=== PATIENT | male | born 1955 | race Hispanic/Latino ===

== ENCOUNTER 2017-02-25 01:18 | Emergency (ER) | payer MEDICARE ==
[2017-02-25 02:24] LABS: Bilirubin,Urine NEG (Negative); Blood,Urine NEG (Negative); Ketones,Urine 20 mg/dL (Negative); Leukocyte Esterase,Urine NEG (Negative); Nitrite,Urine NEG (Negative); Urobilinogen,Urine < 2.0 mg/dL (<2.0)
[2017-02-25 02:29] LABS: Protein,Urine >500 mg/dL (Negative)
[2017-02-25 03:02] LABS: Basophils % (Auto) 0.3 % (0.0-1.8); Hematocrit 47.4 % (35.5-45.6); Hemoglobin 15.7 gm/dl (11.8-15.2); Mean Corpuscular HGB Conc 33 % (32-34); Mean Corpuscular Hemoglobin 31 pg (28-32); Mean Corpuscular Volume 94 fl (84-94); Platelet Count 233 K/mm3 (140-440); Red Blood Count 5.06 M/mm3 (3.65-5.03); White Blood Count 14.9 K/mm3 (4.5-11.0)
[2017-02-25 03:11] LABS: Alanine Aminotransferase 7 units/L (7-56); Albumin 4.6 g/dL (3.9-5); Albumin/Globulin Ratio 1.4 %; Alkaline Phosphatase 96 units/L (35-129); Anion Gap 18 mmol/L; BUN/Creatinine Ratio 14.28; Blood Urea Nitrogen 10 mg/dL (9-20); Calcium 9.3 mg/dL (8.4-10.2); Carbon Dioxide 29 mmol/L (22-30); Chloride 95.1 mmol/L (98-107); Glucose 345 mg/dL (75-100); Lipase 17 units/L (13-60); Potassium 4.7 mmol/L (3.6-5.0); Sodium 137 mmol/L (137-145)
--- NOTE | 2017-02-25 06:26 | Emergency Department Report ---
ED General Adult HPI - General Chief complaint: Abdominal Pain Stated complaint: VOMITING, COUGH Time Seen by Provider: 02/25/17 06:23 Source: patient Mode of arrival: Ambulatory Limitations: No Limitations - History of Present Illness Initial comments: The patient has a history of schizophrenia and is poorly able to give his medical history. I see presume he has some degree of dementia as he is on Aricept as well. He is here with an attendant who knows he is diabetic. The patient denies being diabetic. He complains of cough occasionally with a brown sputum. He said no recent fever or chills. Does not complain of chest pain. He has some vague abdominal discomfort does not complain of this now. He denies any nausea vomiting or diarrhea. Denies any previous abdominal problems or surgery. He appears to be quite comfortable and actually asymptomatic at time of my encounter. -: hour(s) Location: abdomen Radiation: non-radiation Severity scale (0 -10): 3 Quality: other (cramping) Consistency: intermittent, now resolved Improves with: none Worsens with: none Associated Symptoms: denies other symptoms Treatments Prior to Arrival: none - Related Data Home Medications Medication Instructions Recorded Confirmed Last Taken Divalproex Dr [Garrett COHN] 1,000 mg PO QHS 05/02/16 07/23/16 05/01/16 21:00 Multivitamin Tab [Multiple Vitamin 1 each PO QDAY 05/02/16 07/23/16 05/02/16 08: 00 TAB (Theragran)] Olanzapine [ZyPREXA] 20 mg PO QHS 05/02/16 07/23/16 05/01/16 21:00 Thiamine [Vitamin B-1] 100 mg PO QDAY 05/02/16 07/23/16 05/02/16 08:00 traZODone [Desyrel] 100 mg PO QHS 05/02/16 07/23/16 05/01/16 21:00 Aspirin [Aspirin BABY CHEW TAB] 81 mg PO QDAY 07/06/16 07/23/16 Unknown Donepezil [Aricept] 5 mg PO QDAY 07/06/16 07/23/16 Unknown metFORMIN [Glucophage] 500 mg PO BID 07/06/16 07/23/16 Unknown Previous Rx's Medication Instructions Recorded Last Taken Type Clindamycin [Clindamycin CAP] 300 mg PO Q8H #15 cap 07/25/16 Unknown Rx Azithromycin [Zithromax Z-MADIHA] 250 mg PO DAILY #6 tab 02/25/17 Unknown Rx Metformin HCl [Glucophage] 1,000 mg PO BID #60 tablet 02/25/17 Unknown Rx Allergies Allergy/AdvReac Type Severity Reaction Status Date / Time No Known Allergies Allergy Verified 07/06/16 09:29 ED Review of Systems ROS: Stated complaint: VOMITING, COUGH Other details as noted in HPI Constitutional: denies: chills, fever Eyes: denies: eye pain, eye discharge, vision change ENT: denies: ear pain, throat pain Respiratory: denies: cough, shortness of breath, wheezing Cardiovascular: denies: chest pain, palpitations Endocrine: no symptoms reported Gastrointestinal: abdominal pain (lower abdominal), diarrhea (apparently did tell triage she had some diarrhea 2 days ago). denies: nausea Genitourinary: denies: urgency, dysuria Musculoskeletal: denies: back pain, joint swelling, arthralgia Skin: denies: rash, lesions Neurological: denies: headache, weakness, paresthesias Psychiatric: denies: anxiety, depression Hematological/Lymphatic: denies: easy bleeding, easy bruising ED Past Medical Hx - Past Medical History Previous Medical History?: Yes Hx Hypertension: Yes Hx Congestive Heart Failure: Yes Hx Diabetes: Yes Hx Psychiatric Treatment: Yes (SCHIZOPHRENIA; BEHAVIORAL PROBLEMS) - Surgical History Past Surgical History?: No - Social History Smoking Status: Current Every Day Smoker Substance Use Type: Marijuana - Medications Home Medications: Home Medications Medication Instructions Recorded Confirmed Last Taken Type Divalproex [Garrett COHN] 1,000 mg PO QHS 05/02/16 07/23/16 05/01/16 21:00 History Multivitamin Tab [Multiple Vitamin 1 each PO QDAY 05/02/16 07/23/16 05/02/16 08: 00 History TAB (Theragran)] Olanzapine [ZyPREXA] 20 mg PO QHS 05/02/16 07/23/16 05/01/16 21:00 History Thiamine [Vitamin B-1] 100 mg PO QDAY 05/02/16 07/23/16 05/02/16 08:00 History traZODone [Desyrel] 100 mg PO QHS 05/02/16 07/23/16 05/01/16 21:00 History Aspirin [Aspirin BABY CHEW TAB] 81 mg PO QDAY 07/06/16 07/23/16 Unknown History Donepezil [Aricept] 5 mg PO QDAY 07/06/16 07/23/16 Unknown History metFORMIN [Glucophage] 500 mg PO BID 07/06/16 07/23/16 Unknown History Clindamycin [Clindamycin CAP] 300 mg PO Q8H #15 cap 07/25/16 Unknown Rx Azithromycin [Zithromax Z-MADIHA] 250 mg PO DAILY #6 tab 02/25/17 Unknown Rx Metformin HCl [Glucophage] 1,000 mg PO BID #60 tablet 02/25/17 Unknown Rx ED Physical Exam - General Limitations: No Limitations General appearance: alert, in no apparent distress - Head Head exam: Present: atraumatic, normocephalic - Eye Eye exam: Present: normal appearance. Absent: scleral icterus - ENT ENT exam: Present: mucous membranes moist - Neck Neck exam: Present: normal inspection - Respiratory Respiratory exam: Present: normal lung sounds bilaterally. Absent: respiratory distress - Cardiovascular Cardiovascular Exam: Present: regular rate, normal rhythm. Absent: systolic murmur, diastolic murmur, rubs, gallop - GI/Abdominal GI/Abdominal exam: Present: soft, normal bowel sounds, other (a completely benign and negative abdominal exam). Absent: distended, tenderness, guarding, rebound, rigid, organomegaly, mass, bruit, pulsatile mass, hernia - Rectal Rectal exam: Present: deferred - Extremities Exam Extremities exam: Present: normal inspection, normal capillary refill. Absent: tenderness, pedal edema, joint swelling, calf tenderness - Back Exam Back exam: Present: normal inspection - Neurological Exam Neurological exam: Present: alert, oriented X3, CN II-XII intact. Absent: motor sensory deficit - Psychiatric Psychiatric exam: Present: normal affect, normal mood - Skin Skin exam: Present: warm, dry, intact, normal color. Absent: rash ED Course Vital Signs 02/25/17 02/25/17 02/25/17 01:20 04:30 04:40 Temperature 98.4 F Pulse Rate 73 113 H 107 H Respiratory 20 13 25 H Rate Blood Pressure 102/66 Blood Pressure 124/69 [Right] O2 Sat by Pulse 96 97 97 Oximetry 02/25/17 02/25/17 02/25/17 04:50 05:00 05:10 Temperature Pulse Rate 105 H 100 H 105 H Respiratory 19 22 16 Rate Blood Pressure 102/66 102/56 102/56 Blood Pressure [Right] O2 Sat by Pulse 96 94 96 Oximetry 02/25/17 02/25/17 02/25/17 05:20 05:30 05:40 Temperature Pulse Rate 111 H 102 H 108 H Respiratory 19 20 22 Rate Blood Pressure 102/56 114/76 114/76 Blood Pressure [Right] O2 Sat by Pulse 97 96 96 Oximetry 02/25/17 02/25/17 02/25/17 05:50 06:00 06:10 Temperature Pulse Rate 108 H Respiratory 18 Rate Blood Pressure 114/76 97/72 97/72 Blood Pressure [Right] O2 Sat by Pulse 96 97 94 Oximetry 02/25/17 02/25/17 02/25/17 06:20 06:30 06:40 Temperature Pulse Rate Respiratory Rate Blood Pressure 97/72 97/72 119/74 Blood Pressure [Right] O2 Sat by Pulse 95 96 97 Oximetry 02/25/17 02/25/17 02/25/17 06:50 07:00 07:10 Temperature Pulse Rate Respiratory Rate Blood Pressure 119/74 111/73 119/74 Blood Pressure [Right] O2 Sat by Pulse 90 97 97 Oximetry - Reevaluation(s) Reevaluation #1: Patient was given insulin and IV fluid. His bit volume depleted. He will be given an antibiotic for his bronchitis. Primary care follow-up is recommended. 02/25/17 09:27 ED Medical Decision Making - Lab Data Result diagrams: 02/25/17 02:29 02/25/17 02:29 Laboratory Results - last 24 hr 02/25/17 02/25/17 02/25/17 02:29 02:29 02:29 WBC 14.9 H RBC 5.06 H Hgb 15.7 H Hct 47.4 H MCV 94 MCH 31 MCHC 33 RDW 13.0 L Plt Count 233 Lymph % (Auto) 3.8 L Mathews % (Auto) 12.5 H Eos % (Auto) 0.0 Baso % (Auto) 0.3 Lymph # 0.6 L Mathews # 1.9 H Eos # 0.0 Baso # 0.0 Seg Neutrophils % 83.4 H Seg Neutrophils # 12.4 H Sodium 137 Potassium 4.7 Chloride 95.1 L Carbon Dioxide 29 Anion Gap 18 BUN 10 Creatinine 0.7 L Estimated GFR > 60 BUN/Creatinine Ratio 14.28 Glucose 345 H Calcium 9.3 Total Bilirubin 0.70 AST 10 ALT 7 Alkaline Phosphatase 96 Troponin T < 0.010 Total Protein 8.0 Albumin 4.6 Albumin/Globulin Ratio 1.4 Lipase 17 Urine Color Urine Turbidity Urine pH Ur Specific [place] Urine Protein Urine Glucose (UA) Urine Ketones Urine Blood Urine Nitrite Urine Bilirubin Urine Urobilinogen Ur Leukocyte Esterase Urine WBC (Auto) Urine RBC (Auto) 02/25/17 Unknown WBC RBC Hgb Hct MCV MCH MCHC RDW Plt Count Lymph % (Auto) Mathews % (Auto) Eos % (Auto) Baso % (Auto) Lymph # Mathews # Eos # Baso # Seg Neutrophils % Seg Neutrophils # Sodium Potassium Chloride Carbon Dioxide Anion Gap BUN Creatinine Estimated GFR BUN/Creatinine Ratio Glucose Calcium Total Bilirubin AST ALT Alkaline Phosphatase Troponin T Total Protein Albumin Albumin/Globulin Ratio Lipase Urine Color Yellow Urine Turbidity Clear Urine pH 6.0 Ur Specific [place] 1.041 H Urine Protein >500 Urine Glucose (UA) >=500 Urine Ketones 20 Urine Blood Neg Urine Nitrite Neg Urine Bilirubin Neg Urine Urobilinogen < 2.0 Ur Leukocyte Esterase Neg Urine WBC (Auto) 2.0 Urine RBC (Auto) 4.0 - Radiology Data interpreted by me: CXR ABD CMG NAF Critical care attestation.: If time is entered above; I have spent that time in minutes in the direct care of this critically ill patient, excluding procedure time. ED Disposition Clinical Impression: Volume depletion Acute bronchitis Qualifiers: Bronchitis organism: unspecified organism Qualified Code(s): J20.9 - Acute bronchitis, unspecified Hyperglycemia due to type 2 diabetes mellitus Qualifiers: Diabetes mellitus fdc insulin use: without fdc use Qualified Code(s ): E11.65 - Type 2 diabetes mellitus with hyperglycemia Disposition: TO HOME OR SELFCARE Is pt being admited?: No Does the pt Need Aspirin: No Condition: Stable Instructions: Acute Bronchitis (ED), Diabetes Mellitus Type 2 in Adults (ED) Additional Instructions: Increase her metformin to 1000 mg twice a day. Antibiotic as directed. Follow- up with your primary care provider. Return any acute change or problem. Prescriptions: Azithromycin [Zithromax Z-MADIHA] 250 mg PO DAILY #6 tab Metformin HCl [Glucophage] 1,000 mg PO BID #60 tablet Referrals: THIERRY BROWN MD [Primary Care Provider] - 3-5 Days Time of Disposition: 09:34
[2017-02-25] MEDS ORDERED: NACL 0.9% 1000 ML 1,000 ML IV ONE (06:46)
[2017-02-25 07:25] VITALS: BP 119/74
--- NOTE | 2017-02-25 09:12 | XRay Report ---
Abdominal series: Limited study due to absence of supine radiograph of abdomen. Patient refused study. History: Cough, abdominal pain. Findings: Borderline cardiomegaly. No acute lung changes. There is small 6 mm nodule identified in the retrocardiac region above the left diaphragm probably calcified granuloma. No free intraperitoneal air. Moderate amount of air is seen in large bowel with few distended loops of small bowel. In the visualized portion of the abdomen no radiopaque calculus or abnormal calcification. Impression: No acute lung changes. Probable incomplete small bowel obstruction.
== END 2017-02-25 09:53 | disposition home or self-care (01) ==
LOC: ED 01:18
DX: E86.9 Volume depletion, unspecified (principal); J20.9 Acute bronchitis, unspecified; E11.65 Type 2 diabetes mellitus with hyperglycemia; I10 Essential (primary) hypertension; I50.9 Heart failure, unspecified; E11.9 Type 2 diabetes mellitus without complications; F20.9 Schizophrenia, unspecified; F17.200 Nicotine dependence, unspecified, uncomplicated; F12.90 Cannabis use, unspecified, uncomplicated; Z79.82 Long term (current) use of aspirin
CPT/HCPCS: 36415; 74022; 80053; 81001; 83690; 84484; 85025; 96361; 96374; 99284; J7030; J1815

== ENCOUNTER 2017-05-01 11:57 | Emergency (ER) | payer MEDICARE ==
[2017-05-01 12:30] LABS: Basophils % (Auto) 0.3 % (0.0-1.8); Eosinophils % (Auto) 1.3 % (0.0-4.3); Hematocrit 42.3 % (35.5-45.6); Hemoglobin 14.4 gm/dl (11.8-15.2); Mean Corpuscular HGB Conc 34 % (32-34); Mean Corpuscular Hemoglobin 31 pg (28-32); Mean Corpuscular Volume 91 fl (84-94); Platelet Count 142 K/mm3 (140-440); Red Blood Count 4.63 M/mm3 (3.65-5.03); Red Cell Distribution Width 14.7 % (13.2-15.2); White Blood Count 7.3 K/mm3 (4.5-11.0)
[2017-05-01 12:48] LABS: Anion Gap 19 mmol/L; BUN/Creatinine Ratio 14.28; Blood Urea Nitrogen 10 mg/dL (9-20); Calcium 9.2 mg/dL (8.4-10.2); Carbon Dioxide 26 mmol/L (22-30); Chloride 95.1 mmol/L (98-107); Glucose 184 mg/dL (75-100); Potassium 4.2 mmol/L (3.6-5.0); Sodium 136 mmol/L (137-145)
--- NOTE | 2017-05-01 16:16 | Emergency Department Report ---
ED General Adult HPI - General Chief complaint: Hyperglycemia Stated complaint: HYPERGLYCEMIA Time Seen by Provider: 05/01/17 16:07 Source: family Mode of arrival: Ambulatory Limitations: No Limitations - History of Present Illness Initial comments: 61 years old history of schizophrenia diabetes presented with high blood sugar . Patient stated that he thinking the machine that the home care have not working well, he stated that he has been having cough no fever no nausea no vomiting no other complaint. MD Complaint: hyperglycemia -: Gradual - Related Data Home Medications Medication Instructions Recorded Confirmed Last Taken Divalproex Dr [DepaKOJIGNESH DR] 1,000 mg PO QHS 05/02/16 07/23/16 05/01/16 21:00 Multivitamin Tab [Multiple Vitamin 1 each PO QDAY 05/02/16 07/23/16 05/02/16 08: 00 TAB (Theragran)] Olanzapine [ZyPREXA] 20 mg PO QHS 05/02/16 07/23/16 05/01/16 21:00 Thiamine [Vitamin B-1] 100 mg PO QDAY 05/02/16 07/23/16 05/02/16 08:00 traZODone [Desyrel] 100 mg PO QHS 05/02/16 07/23/16 05/01/16 21:00 Aspirin [Aspirin BABY CHEW TAB] 81 mg PO QDAY 07/06/16 07/23/16 Unknown Donepezil [Aricept] 5 mg PO QDAY 07/06/16 07/23/16 Unknown metFORMIN [Glucophage] 500 mg PO BID 07/06/16 07/23/16 Unknown Previous Rx's Medication Instructions Recorded Last Taken Type Clindamycin [Clindamycin CAP] 300 mg PO Q8H #15 cap 07/25/16 Unknown Rx Azithromycin [Zithromax Z-MADIHA] 250 mg PO DAILY #6 tab 02/25/17 Unknown Rx Metformin HCl [Glucophage] 1,000 mg PO BID #60 tablet 02/25/17 Unknown Rx Allergies Allergy/AdvReac Type Severity Reaction Status Date / Time No Known Allergies Allergy Verified 05/01/17 12:00 ED Review of Systems ROS: Stated complaint: HYPERGLYCEMIA Other details as noted in HPI Comment: All other systems reviewed and negative Constitutional: denies: chills, fever ENT: denies: throat pain Respiratory: cough. denies: orthopnea, shortness of breath, SOB with exertion, SOB at rest Cardiovascular: denies: chest pain, palpitations, dyspnea on exertion, orthopnea , syncope Gastrointestinal: denies: abdominal pain, nausea, vomiting, diarrhea Genitourinary: denies: urgency, dysuria, frequency, hematuria, discharge Skin: denies: rash Neurological: denies: headache, weakness ED Past Medical Hx - Past Medical History Hx Hypertension: Yes Hx Congestive Heart Failure: Yes Hx Diabetes: Yes Hx Psychiatric Treatment: Yes (SCHIZOPHRENIA; BEHAVIORAL PROBLEMS) - Social History Smoking Status: Never Smoker Substance Use Type: None - Medications Home Medications: Home Medications Medication Instructions Recorded Confirmed Last Taken Type Divalproex Dr [DepaKOTE DR] 1,000 mg PO QHS 05/02/16 07/23/16 05/01/16 21:00 History Multivitamin Tab [Multiple Vitamin 1 each PO QDAY 05/02/16 07/23/16 05/02/16 08: 00 History TAB (Theragran)] Olanzapine [ZyPREXA] 20 mg PO QHS 05/02/16 07/23/16 05/01/16 21:00 History Thiamine [Vitamin B-1] 100 mg PO QDAY 05/02/16 07/23/16 05/02/16 08:00 History traZODone [Desyrel] 100 mg PO QHS 05/02/16 07/23/16 05/01/16 21:00 History Aspirin [Aspirin BABY CHEW TAB] 81 mg PO QDAY 07/06/16 07/23/16 Unknown History Donepezil [Aricept] 5 mg PO QDAY 07/06/16 07/23/16 Unknown History metFORMIN [Glucophage] 500 mg PO BID 07/06/16 07/23/16 Unknown History Clindamycin [Clindamycin CAP] 300 mg PO Q8H #15 cap 07/25/16 Unknown Rx Azithromycin [Zithromax Z-MADIHA] 250 mg PO DAILY #6 tab 02/25/17 Unknown Rx Metformin HCl [Glucophage] 1,000 mg PO BID #60 tablet 02/25/17 Unknown Rx ED Physical Exam - General Limitations: No Limitations General appearance: alert, in no apparent distress - Head Head exam: Present: atraumatic, normocephalic - Eye Eye exam: Present: normal appearance - ENT ENT exam: Present: normal exam - Neck Neck exam: Present: normal inspection - Respiratory Respiratory exam: Present: normal lung sounds bilaterally. Absent: respiratory distress - Cardiovascular Cardiovascular Exam: Present: regular rate, normal rhythm. Absent: systolic murmur, diastolic murmur, rubs, gallop - GI/Abdominal GI/Abdominal exam: Present: soft, normal bowel sounds. Absent: distended, tenderness, guarding, rebound, rigid - Extremities Exam Extremities exam: Present: normal inspection - Back Exam Back exam: Present: normal inspection. Absent: tenderness, CVA tenderness (R), CVA tenderness (L) - Neurological Exam Neurological exam: Present: alert, oriented X3, CN II-XII intact, normal gait - Psychiatric Psychiatric exam: Present: normal affect, normal mood. Absent: homicidal ideation, suicidal ideation - Skin Skin exam: Present: warm, normal color ED Course Vital Signs 05/01/17 05/01/17 05/01/17 12:00 17:12 17:22 Temperature 98.1 F 97.9 F Pulse Rate 115 H 98 H Respiratory 18 18 18 Rate Blood Pressure 111/75 Blood Pressure 106/76 [Left] O2 Sat by Pulse 96 100 100 Oximetry - Reevaluation(s) Reevaluation #1: 05/01/17 18:53 Patient remained asymptomatic in the ER his blood glucose is 197. Patient will be discharged back to his home care to follow up with his primary care physician for further management. ED Medical Decision Making - Lab Data Result diagrams: 05/01/17 12:17 05/01/17 12:17 Critical care attestation.: If time is entered above; I have spent that time in minutes in the direct care of this critically ill patient, excluding procedure time. ED Disposition Clinical Impression: Hyperglycemia Disposition: DC-01 TO HOME OR SELFCARE Is pt being admited?: No Condition: Stable Instructions: Diabetic Hyperglycemia (ED) Referrals: PRIMARY CARE, [Primary Care Provider] - 3-5 Days
[2017-05-01 16:53] LABS: Bilirubin,Urine NEG (Negative); Blood,Urine NEG (Negative); Ketones,Urine 20 mg/dL (Negative); Leukocyte Esterase,Urine NEG (Negative); Mucus,Urine 2+ /HPF; Nitrite,Urine NEG (Negative)
[2017-05-01 17:14] VITALS: BP 106/76
--- NOTE | 2017-05-02 08:24 | XRay Report ---
AP CHEST: HISTORY: Cough AP view of the chest demonstrates a normal mediastinal and cardiac contour with clear lungs and normal bony and soft tissue structures. Cardiomegaly and pulmonary venous congestion have resolved since 07/22/16. IMPRESSION: Unremarkable AP chest.
== END 2017-05-01 19:29 | disposition home or self-care (01) ==
LOC: ED 11:57
DX: E11.65 Type 2 diabetes mellitus with hyperglycemia (principal); I10 Essential (primary) hypertension; I50.9 Heart failure, unspecified; F20.9 Schizophrenia, unspecified; Z79.82 Long term (current) use of aspirin
CPT/HCPCS: 36415; 71010; 80048; 81001; 82962; 85025

== ENCOUNTER 2017-09-11 18:03 | Emergency (ER) | payer MEDICARE ==
[2017-09-11 19:28] LABS: Basophils # (Auto) 0.1 K/mm3 (0.0-0.1); Basophils % (Auto) 1.5 % (0.0-1.8); Eosinophils % (Auto) 0.7 % (0.0-4.3); Hematocrit 37.3 % (35.5-45.6); Hemoglobin 12.5 gm/dl (11.8-15.2); Lymphocytes # (Auto) 1.3 K/mm3 (1.2-5.4); Lymphocytes % (Auto) 24.4 % (13.4-35.0); Mean Corpuscular HGB Conc 34 % (32-34); Mean Corpuscular Hemoglobin 32 pg (28-32); Mean Corpuscular Volume 95 fl (84-94); Monocytes # (Auto) 0.5 K/mm3 (0.0-0.8); Monocytes % (Auto) 8.8 % (0.0-7.3); Platelet Count 203 K/mm3 (140-440); Red Blood Count 3.93 M/mm3 (3.65-5.03); Red Cell Distribution Width 13.7 % (13.2-15.2)
[2017-09-11 19:35] LABS: BUN/Creatinine Ratio 12; Blood Urea Nitrogen 7 mg/dL (9-20); Calcium 9.2 mg/dL (8.4-10.2); Hemolysis Index 6
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
[2017-09-12 10:02] LABS: Bilirubin,Urine NEG (Negative); Blood,Urine NEG (Negative); Color,Urine Yellow (Yellow); Mucus,Urine FEW /HPF; Nitrite,Urine NEG (Negative); Protein,Urine <15 mg/dL mg/dL (Negative); Urobilinogen,Urine < 2.0 mg/dL (<2.0)
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
[2017-09-12 12:44] LABS: Amphetamine Screen,Urine PRESUMPTIVE NEGATIVE; Benzodiazepines Screen,Urine PRESUMPTIVE NEGATIVE; Cannabinoid Screen,Urine PRESUMPTIVE NEGATIVE; Cocaine Screen,Urine PRESUMPTIVE NEGATIVE; Methadone Screen,Urine PRESUMPTIVE NEGATIVE; Opiate Screen,Urine PRESUMPTIVE NEGATIVE
[2017-09-12 14:27] VITALS: BP 111/63
== END 2017-09-12 19:00 ==
LOC: ED 18:03
DX: F23 Brief psychotic disorder (principal); F20.9 Schizophrenia, unspecified; I10 Essential (primary) hypertension; I50.9 Heart failure, unspecified; E11.9 Type 2 diabetes mellitus without complications
CPT/HCPCS: 36415; 80048; 80164; 80307; 81001; 85025; 99285; G0480; 80320